=== PATIENT | male | born 1990 | race Caucasian/White ===

== ENCOUNTER 2017-04-06 20:18 | Emergency (ER) | payer OTHER ==
[~2017-04-06] VITALS: Ht 177.8 cm; Wt 81.5 kg
[~2017-04-06 20:18] MED LIST: PT TAKES NO MEDS
[2017-04-06 20:22] VITALS: Ht 177.8 cm; Wt 81.5 kg
[2017-04-06] MEDS ORDERED: NAPR-260 PO (20:56)
[2017-04-06 21:04] VITALS: BP 156/91; PULSE 67; RESP 20
--- NOTE | 2017-04-06 21:45 | ERD ---
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 Patient denies paresis or paresthesias to the hand the left upper extremity, no direct trauma to the shoulder or back, no chest pain or shortness of breath. ROS All systems reviewed and are negative except as per history of present illness. Medications Home Meds Active Scripts Naproxen* (Naprosyn*) 500 Mg Tablet, 500 MG PO BID Y for PAIN AND/OR INFLAMMATION, #30 TAB Prov:MERCEDES OCASIO MD 04/06/17 Reported Medications [Pt Takes No Meds] No Conflict Check 10/05/11 Allergies Allergies: Coded Allergies: ibuprofen (Verified Allergy, LIP SWALLON, 10/05/11) PMhx/Soc Recurrent shoulder dislocation on the right treated surgically History of Surgery: Yes (APPENDECTOMY 11 YRS AGO) Anesthesia Reaction: No Hx Neurological Disorder: No Hx Respiratory Disorders: No Hx Cardiac Disorders: No Hx Psychiatric Problems: No Hx Miscellaneous Medical Probl: Yes (R shoulder dislocation) Hx Alcohol Use: No Hx Substance Use: No (denies) Hx Tobacco Use: Yes (CIGARETTEE) Smoking Status: Current every day smoker FmHx Family History: No diabetes Physical Exam Vitals Vital Signs Date Time Temp Pulse Resp B/P Pulse Ox O2 Delivery O2 Flow Rate FiO2 04/06/17 21:04 67 20 156/91 97 Room Air 04/06/17 20:22 97.8 97 20 174/102 97 Physical Exam GENERAL: Well-developed, well-nourished, well-hydrated, in moderate discomfort HEENT: Moist mucous membranes, pink conjunctiva, no cervical spine tenderness or step-off deformities, no goiter, no jaundice or icterus, extraocular movements intact without pain. No submandibular induration, and no pharyngeal erythema NEURO: Alert and oriented 3, cranial nerves II through XII intact bilaterally, pupils equal round reactive to light, no focal deficits or facial asymmetry, sensation intact distally Strength 5/5 in upper and lower extremities bilaterally CARDIAC: Regular rate and rhythm, no murmurs rubs or gallops LUNGS: Clear bilaterally no wheezing crackles or stridor ABDOMEN: Soft nontender, no guarding, no rigidity, no rebound, no psoas sign no obturator sign. Normoactive bowel sounds SKIN: Warm and dry to touch, no abrasions, contusions, or hematomas, no lacerations, no ecchymosis, no target lesions, and without ulcers EXTREMITIES: Skin tenting to the left shoulder, no bony deformity or bony tenderness, calves are bilaterally symmetrical, no Homans sign, no popliteal cord sign. Distal pulses equal and bilateral PSYCH: Normal affect without agitation or irritability Procedures/MDM Procedure note, shoulder reduction: Patient did not want to be sedated, I reduced the left shoulder manually by flexion of the left elbow and left upper extremity external rotation. Patient tolerated procedure well, and anatomy improved and appeared normal, patient was able to move the left shoulder and elbow fully both passively and actively without any complaints of pain. Passive range of motion was completely normal without discomfort, shoulder anatomy appeared normal. I placed the left upper extremity in a shoulder immobilizer. Splint Assessment : Neurovascularly intact post splint placement with good fit. Patient feels much better at this time, and vital signs are normal, symptoms have improved. I did give strict instructions to return to the ED if symptoms continue or worsen, patient will otherwise follow-up with primary care physician. Patient understood instructions and agreed to plan. Disclaimer: Inadvertent spelling and grammatical errors are likely due to EHR/ dictation software use and do not reflect on the overall quality of patient care. Also, please note that the electronic time recorded on this note does not necessarily reflect the actual time of the patient encounter. Departure Diagnosis: Primary Impression: Anterior shoulder dislocation Encounter type: initial encounter Laterality: left Qualified Code: S43.015A - Anterior dislocation of left shoulder, initial encounter Condition: Good Patient Instructions: Dislocation: Shoulder (Reduced) Referrals: KAYLEE SWANSON (PCP) MERCEDES OCASIO MD Apr 06, 2017 21:45
== END 2017-04-06 21:05 | disposition home or self-care (01) ==
LOC: E/R 20:18
DX: S43.015A Anterior dislocation of left humerus, initial encounter (principal); F17.210 Nicotine dependence, cigarettes, uncomplicated; X50.0XXA Overexertion from strenuous movement or load, initial encounter; Y92.9 Unspecified place or not applicable
CPT/HCPCS: 23650; Z7502; Z7610

== ENCOUNTER 2018-06-26 20:37 | Emergency (ER) | END 2018-06-26 21:45 | disposition home or self-care (01) ==